=== PATIENT | female | born 1975 | race Native Hawaiian/Other Pacific Islander ===

== ENCOUNTER 2016-12-17 13:29 | Emergency (ER) | payer SELFPAY ==
[2016-12-17 14:29] VITALS: BP 128/81
[2016-12-17] MEDS ORDERED: FLEXERIL PO ONE (17:28)
[2016-12-17] MEDS ORDERED: MOTRIN PO ONE (17:28)
--- NOTE | 2016-12-17 17:39 | Emergency Department Report ---
ED Headache HPI - General Chief Complaint: Headache Stated Complaint: NECK PAIN Time Seen by Provider: 12/17/16 16:36 - History of Present Illness Initial Comments: Is a 44-year-old female with no prior medical history who presents with left sided occipital throbbing, aching, 8 out of 10 intensity time pain for the past 5 days. Patient denies any recent trauma. Patient states she has been working out recently. Otherwise no other relevant history. She states she has no blurry vision or visual disturbance is. She states the pain is localized to just leftoccipital region Timing/Duration: 1 week, constant Quality: moderate Head Injury Location: occipital Recent Head Trauma: no recent headache/trauma Allergies/Adverse Reactions: Allergies No Known Allergies Allergy (Verified 12/17/16 14:31) Home Medications: Ambulatory Orders Cyclobenzaprine [Flexeril 10 MG TAB] 10 mg PO QHS #20 tablet 12/17/16 Ibuprofen [Motrin 800 MG tab] 800 mg PO ONCE #30 tablet 12/17/16 ED Review of Systems ROS: Stated complaint: NECK PAIN Other details as noted in HPI Constitutional: denies: chills, fever Eyes: denies: eye pain, eye discharge, vision change ENT: denies: ear pain, throat pain Respiratory: denies: cough, shortness of breath, wheezing Cardiovascular: denies: chest pain, palpitations Endocrine: no symptoms reported Gastrointestinal: denies: abdominal pain, nausea, diarrhea Genitourinary: denies: urgency, dysuria, discharge Musculoskeletal: denies: back pain, joint swelling, arthralgia Skin: denies: rash, lesions Neurological: denies: headache, weakness, paresthesias Psychiatric: denies: anxiety, depression Hematological/Lymphatic: denies: easy bleeding, easy bruising ED Past Medical Hx - Past Medical History Previous Medical History?: No - Surgical History Past Surgical History?: Yes Additional Surgical History: gallstone, c- section - Social History Smoking Status: Never Smoker Substance Use Type: None - Medications Home Medications: Home Medications Medication Instructions Recorded Confirmed Last Taken Type Cyclobenzaprine [Flexeril 10 MG 10 mg PO QHS #20 tablet 12/17/16 Unknown Rx TAB] Ibuprofen [Motrin 800 MG tab] 800 mg PO ONCE #30 tablet 12/17/16 Unknown Rx ED Physical Exam - General Limitations: No Limitations General appearance: alert, in no apparent distress - Head Head exam: Present: atraumatic, normocephalic - Eye Eye exam: Present: normal appearance, PERRL, EOMI. Absent: conjunctival injection, periorbital swelling, periorbital tenderness - ENT ENT exam: Present: mucous membranes moist - Neck Neck exam: Present: normal inspection, full ROM. Absent: tenderness, lymphadenopathy, thyromegaly - Respiratory Respiratory exam: Present: normal lung sounds bilaterally. Absent: respiratory distress, wheezes, rales, rhonchi - Cardiovascular Cardiovascular Exam: Present: regular rate, normal rhythm. Absent: systolic murmur, diastolic murmur, rubs, gallop - GI/Abdominal GI/Abdominal exam: Present: soft, normal bowel sounds - Extremities Exam Extremities exam: Present: normal inspection, full ROM - Back Exam Back exam: Present: normal inspection. Absent: CVA tenderness (R), CVA tenderness (L) - Neurological Exam Neurological exam: Present: alert, oriented X3, CN II-XII intact, normal gait - Expanded Neurological Exam Expanded Patient oriented to: Present: person, place, time Speech: Present: fluid speech Cranial nerves: EOM's Intact: Normal Cerebellar function: Finger to Nose: Normal Sensory exam: Upper Extremity Light Touch: Normal, Lower Extremity Light Touch: Normal Motor strength exam: RUE: 5, LUE: 5, RLE: 5, LLE: 5 DTR: knee (R): 2+, knee (L): 2+ Best Eye Response (Renato): (4) open spontaneously Best Motor Response (Renato): (6) obeys commands Best Verbal Response (Renato): (5) oriented Renato Total: 15 - Psychiatric Psychiatric exam: Present: normal affect, normal mood - Skin Skin exam: Present: warm, dry, intact, normal color. Absent: rash ED Course Vital Signs 12/17/16 12/17/16 14:27 17:38 Temperature 98.2 F Pulse Rate 58 L Respiratory 16 18 Rate Blood Pressure 128/81 O2 Sat by Pulse 100 Oximetry ED Medical Decision Making - Medical Decision Making 41-year-old female presents with tension headache ED course: CT of the head ordered. Flexeril and Motrin administered in ED. CT of the head shows normal findings Discussed this with the patient. Discussed proper rest . Discussed not to do some strenuous exercises and take it easy. Make sure she hydrate herself while working out Vital signs are normal patient is in no acute distress she reports feeling better prior to discharge Critical care attestation.: If time is entered above; I have spent that time in minutes in the direct care of this critically ill patient, excluding procedure time. ED Disposition Clinical Impression: Tension headache Disposition: DC-01 TO HOME OR SELFCARE Is pt being admited?: No Does the pt Need Aspirin: No Condition: Stable Instructions: Tension Headache (ED), Acute Headache (ED), Musculoskeletal Pain (ED) Prescriptions: Cyclobenzaprine [Flexeril 10 MG TAB] 10 mg PO QHS #20 tablet Ibuprofen [Motrin 800 MG tab] 800 mg PO ONCE #30 tablet Referrals: PRIMARY CARE, [Primary Care Provider] - 3-5 Days [facility] [Outside] - 3-5 Days [facility] [Outside] - 3-5 Days [facility] [Outside] - 3-5 Days Forms: Accompanied Note, Work/School Release Form(ED) Time of Disposition: 18:12
--- NOTE | 2016-12-17 18:04 | Cat Scan Report ---
FINAL REPORT PROCEDURE: CT HEAD/BRAIN WO CON TECHNIQUE: Computerized tomography of the head was performed without contrast material. HISTORY: head pain COMPARISON: No prior studies are available for comparison. FINDINGS: No CT evidence of intracranial mass, hemorrhage, acute territorial infarction, or hydrocephalus. Intracranial arteries are symmetric in density. Calvarium is intact. Visualized paranasal sinuses and mastoids are aerated. IMPRESSION: No CT evidence of acute abnormality
== END 2016-12-17 18:31 | disposition home or self-care (01) ==
LOC: ED 13:29
DX: G44.209 Tension-type headache, unspecified, not intractable (principal); K80.80 Other cholelithiasis without obstruction
CPT/HCPCS: 70450